=== PATIENT | female | born 1940 | race Caucasian/White ===

== ENCOUNTER 2016-12-31 15:26 | Emergency (ER) | payer MEDICARE, OTHER ==
[~2016-12-31] VITALS: Ht 165.1 cm; Wt 74.8 kg
[~2016-12-31 15:26] MED LIST: ASPI81TA2 PO; BIMA2.5D5 OP; DYMISTA; IBUP-1481 PO; KETO10TA2 PO; LEVO50TA40 PO; RANI15SY PO; SIMV20TA6 PO; ZOLP12.542 PO
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
[2016-12-31] MEDS ORDERED: MORPHINE SULFATE INJ 4 MG/ML DISP.SYRIN ONE (15:42)
[2016-12-31] MEDS ORDERED: ONDANSETRON 4 MG TAB.RAPDIS ONE (15:42)
--- NOTE | 2016-12-31 15:50 | NUR ---
java technical manager at bs
--- NOTE | 2016-12-31 15:56 | NUR ---
Medicated patient for pain. will cont to monitor
[2016-12-31] MEDS ORDERED: ONDANSETRON 4 MG TAB.RAPDIS PO ONE (16:00)
[2016-12-31] MEDS ORDERED: MORPHINE SULFATE INJ 2 MG/ML DISP.SYRIN IM ONE (16:00)
[2016-12-31] MEDS ORDERED: IV SET PRIMARY 1 EA INFUS.SET MC ONE (16:20)
[2016-12-31] MEDS ORDERED: ETOMIDATE 2 MG/ML VIAL ONE (16:20)
[2016-12-31] MEDS ORDERED: IV NS 0.9% 250 ML IV ONE (16:20)
[2016-12-31] MEDS ORDERED: ETOMIDATE 2 MG/ML VIAL IV ONE (16:30)
--- NOTE | 2016-12-31 16:55 | NUR ---
elbow close reduction done at bedside by md Vo. Pt tolerated procedure well. Sling provided
--- NOTE | 2016-12-31 16:55 | NUR ---
Miguel A guevara in EDM - 12/31/16 at 1736 by RBATACLAN Close elbow reduction done at bedside by md Vo. Pt tolerated procedure well. Sling provided
[2016-12-31 19:31] VITALS: BP 125/65
--- NOTE | 2016-12-31 19:32 | NUR ---
Patient discharged to home in stable condition. Written and verbal after care instructions given. Patient verbalizes understanding of instruction.
== END 2016-12-31 19:32 | disposition home or self-care (01) ==
LOC: ER 15:29
DX: S53.105A Unspecified dislocation of left ulnohumeral joint, initial encounter (principal); K21.9 Gastro-esophageal reflux disease without esophagitis; E07.9 Disorder of thyroid, unspecified; Z79.82 Long term (current) use of aspirin; Z86.73 Personal history of transient ischemic attack (TIA), and cerebral infarction without residual deficits; Z88.0 Allergy status to penicillin; W19.XXXA Unspecified fall, initial encounter; Y92.89 Other specified places as the place of occurrence of the external cause; Y93.89 Activity, other specified; Y99.8 Other external cause status
CPT/HCPCS: 73060-TC; 73070-TC; 73090-TC; A4606; J2270; J3490; J7050; Q0162; Z7610

== ENCOUNTER 2020-05-12 18:22 | Inpatient (IN) | payer MEDICARE, OTHER ==
[~2020-05-12] VITALS: Ht 162.6 cm; Wt 67.6 kg
[~2020-05-12 18:22] MED LIST changes: +ASPI-1169 PO; -ASPI81TA2 PO; -IBUP-1481 PO; +IBUP-1953 PO; -LEVO50TA40 PO; +LEVO50TA66 PO; +SIMV-46 PO; -SIMV20TA6 PO
[2020-05-12 19:22] LABS: BASOPHILS # (AUTO) 0.1 /CMM (0.0-0.2); BASOPHILS % (AUTO) 0.5 % (0.0-2.0); HEMATOCRIT 37 % (33-45); HEMOGLOBIN 11.9 g/dL (11.5-14.8); LYMPHOCYTES # (AUTO) 0.6 /CMM (0.8-4.8); LYMPHOCYTES % (AUTO) 3.6 % (20.0-44.0); MEAN CORPUSCULAR HGB CONC 32 g/dl (31.0-36.0); MEAN CORPUSCULAR VOLUME 91 fL (82-100); MONOCYTES # (AUTO) 1.4 /CMM (0.1-1.30); MONOCYTES % (AUTO) 9.1 % (2.0-12.0); NEUTROPHILS # (AUTO) 13.6 /CMM (1.8-8.9); NEUTROPHILS % (AUTO) 86.8 % (43.0-81.0); PLATELET COUNT (AUTO) 199 /CMM (150-450); RED BLOOD CELL COUNT(AUTO) 4.06 MIL/uL (4.0-5.2); WHITE BLOOD COUNT (AUTO) 15.6 K/uL (4.3-11.0)
[2020-05-12 19:32] LABS: CALCIUM, SERUM 9.4 mg/dL (8.5-10.1); CARBON DIOXIDE 23 mmol/L (21-32); CHLORIDE 104 mmol/L (98-107); CREATININE 1.2 mg/dL (0.6-1.3); GLUCOSE 129 mg/dL (74-106); POTASSIUM 3.6 mmol/L (3.5-5.1); SODIUM SERUM 137 mmol/L (136-145); UREA NITROGEN, BLOOD 25 mg/dL (7-18)
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
[2020-05-12] MEDS ORDERED: FENTANYL PF 100MCG/2ML AMPUL IV ONE (20:00)
[2020-05-12] MEDS ORDERED: IV NS 0.9% 1,000 ML IV ONE ×2 (20:00→22:00)
[2020-05-12] MEDS ORDERED: FENTANYL PF 100MCG/2ML AMPUL ONE (20:14)
--- NOTE | 2020-05-12 21:35 | NUR ---
[facility], PAGED DEVANTE LAWRENCE DNP
[2020-05-12 21:45] LABS: APPEARANCE,URINE Clear (CLEAR); BILIRUBIN,URINE SMALL (NEGATIVE); BLOOD, URINE Large Ery/uL (NEGATIVE); COLOR,URINE Orange (YELLOW); KETONES,URINE 15 (NEGATIVE); LEUKOCYTE ESTERASE ,URINE Small (NEGATIVE); NITRITE, URINE Negative (NEGATIVE); PH,URINE 5.5 (5.0-8.0); PROTEIN,URINE 100 mg/dl (NEGATIVE); UGLUCOSE Negative (NEGATIVE); UROBILINOGEN,URINE 0.2 EU/dL (0.2)
--- NOTE | 2020-05-12 21:49 | NUR ---
REPORT GIVEN TO MARCELLE CHAND FOR DEBBIE
[2020-05-12 21:56] LABS: BACTERIA,URINE Many /HPF (None Seen); RBC,URINE 21-50 /HPF (0-2)
[2020-05-12 21:57] LABS: SQUAMOUS EPITHELIAL CELL,UR Few /HPF (None Seen)
[2020-05-12 22:00] VITALS: BP 112/63
[2020-05-12] MEDS ORDERED: ONDANSETRON HCL/PF 4 MG/2 ML VIAL IVP PRN (22:00)
[2020-05-12] MEDS ORDERED: HYDROCODONE/APAP 5/325MG 1 EACH TABLET PO PRN (22:00)
[2020-05-12] MEDS ORDERED: ACETAMINOPHEN 325 MG TABLET PO PRN (22:00)
[2020-05-12] MEDS ORDERED: Z GUARD REMEDY 2 OZ OINT TP PRN (22:00)
[2020-05-12] MEDS ORDERED: MAGNESIUM HYDROXIDE 30 ML UDC PO PRN (22:00)
--- NOTE | 2020-05-12 22:08 | NUR ---
PT TRANPORTED TO UNIT ON [facility] WITH EMT AND RN AT BEDSIDE W/ ACLS PROTOCOL.
--- NOTE | 2020-05-12 22:15 | NUR ---
MS RN NOTES PATIENT ARRIVED ON FLOOR AT 2215. PT IS ALERT AND ORIENTED X 2-3. HAS TO BE REMINDED OFTEN ON PREVIOUSLY DISCUSSED TOPICS. BREATHING EVEN AND UNLABORED ON ROOM AIR. SHOWS NO SIGNS OF ACUTE RESPIRATORY DISTRESS, NO ACUTE PAIN. IV ON R HAND 18G ITS CLEAN DRY AND INTACT, RUNNING NS AT 75ML/HR. SHOWS NO SIGNS OF INFILTRATION, NO REDNESS. SAFETY PRECAUTIONS IN PLACE. BED IN LOWEST POSITION, LOCKED, AND CALL LIGHT KEPT WITHIN REACH. WILL CONTINUE TO MONITOR.
--- NOTE | 2020-05-12 22:16 | NUR ---
MS RN NOTES BELONGINGS CHECKLIST COMPLETED, ORIENTED TO ROOM AND STAFF. SKIN ASSESSMENT & PICTURES COMPLETED. PT REFUSED DVT PUMPS ON LEGS B/C OF PAIN, EDUCATED RISK AND BENEFITS. HAS LOVENOX ON EMAR. WILL CONTINUE TO MONITOR.
[2020-05-12] MEDS: ENOXAPARIN SODIUM 40 MG/0.4 ML DISP.SYRIN SQ SCH (23:09)
[2020-05-13] MEDS ORDERED: ZOLPIDEM TARTRATE 5 MG TABLET PO PRN (00:30)
--- NOTE | 2020-05-13 00:35 | NUR ---
MS RN NOTES PATIENT REQUEST SLEEPING MEDICATIONS, SHE NORMALLY TAKES AMBIEN AT HOME. GIVEN AT 0035. WILL CONTINUE TO MONITOR.
[2020-05-13] MEDS: MORPHINE SULFATE INJ 2 MG/ML DISP.SYRIN IV PRN ×2 (01:11→07:15)
--- NOTE | 2020-05-13 01:15 | NUR ---
MS RN NOTES PATIENT COMPLAINING ABOUT PAIN AND CONTINUED TO YELL. GIVEN PRN MORPHINE AT 0111. VITAL SIGNS WNL. WILL CONTINUE TO MONITOR.
[2020-05-13] MEDS: LEVOTHYROXINE SODIUM 50 MCG TABLET PO SCH (06:14)
--- NOTE | 2020-05-13 06:37 | NUR ---
MS RN NOTES PT IS ALERT AND ORIENTED X 2-3. FORGETFUL. BREATHING EVEN AND UNLABORED ON ROOM AIR. SHOWS NO SIGNS OF ACUTE RESPIRATORY DISTRESS, NO ACUTE PAIN. IV ON L HAND 20G ITS CLEAN DRY AND INTACT, RUNNING NS AT 75ML/HR. SHOWS NO SIGNS OF INFILTRATION, NO REDNESS. ALL DUE MEDICATIONS GIVEN. SAFETY PRECAUTIONS IN PLACE. BED IN LOWEST POSITION, LOCKED, AND CALL LIGHT KEPT WITHIN REACH. WILL ENDORSE TO ONCOMING NURSE.
--- NOTE | 2020-05-13 07:15 | NUR ---
MS RN NOTES PATIENT COMPLAINING OF PAIN 06/01. GIVEN PRN MORPHINE AT 0715. WILL CONTINUE TO MONITOR.
--- NOTE | 2020-05-13 07:35 | NUR ---
MS RN NOTES PATIENT RECEIVED IN BED AWAKE, ALERT AND ORIENTED X 2-3. PATIENT ON ROOM AIR WITH NO SIGNS OF RESPIRATORY DISTRESS AT THIS TIME, WITH EVEN NON-LABORED BREATHING, AND NO SIGNS OF SOB. PATIENT SKIN WARM AND DRY TO TOUCH. LAMBERT CATHETER IN PLACE WITH URINE OUTPUT FLOWING BY GRAVITY. PATIENT GIVEN MORPHINE PRN FOR PAIN AT 0715, PATIENT DENIES PAIN AND DISCOMFORT AT THIS TIME, AND PROVIDED COMFORT MEASURES. SAFETY PRECAUTIONS IN PLACE WITH BED IN THE LOWEST POSITION, BED ALARM ON, BED LOCKED, BILATERAL SIDE RAILS UP, AND CALL LIGHT WITHIN EASY REACH OF THE PATIENT. WILL CONTINUE TO MONITOR PATIENT.
[2020-05-13 08:00] VITALS: BP 109/46
[2020-05-13 08:01] LABS: BASOPHILS % (AUTO) 0.2 % (0.0-2.0); HEMATOCRIT 35 % (33-45); HEMOGLOBIN 11.5 g/dL (11.5-14.8); LYMPHOCYTES # (AUTO) 0.5 /CMM (0.8-4.8); LYMPHOCYTES % (AUTO) 4.4 % (20.0-44.0); MEAN CORPUSCULAR HGB CONC 33 g/dl (31.0-36.0); MEAN CORPUSCULAR VOLUME 91 fL (82-100); MONOCYTES # (AUTO) 1.1 /CMM (0.1-1.30); MONOCYTES % (AUTO) 9.6 % (2.0-12.0); NEUTROPHILS # (AUTO) 9.4 /CMM (1.8-8.9); NEUTROPHILS % (AUTO) 85.8 % (43.0-81.0); PLATELET COUNT (AUTO) 178 /CMM (150-450); RED BLOOD CELL COUNT(AUTO) 3.81 MIL/uL (4.0-5.2); WHITE BLOOD COUNT (AUTO) 10.9 K/uL (4.3-11.0)
[2020-05-13 08:10] LABS: CALCIUM, SERUM 9.2 mg/dL (8.5-10.1); CREATININE 0.9 mg/dL (0.6-1.3); MAGNESIUM 2.3 mg/dL (1.8-2.4); PHOSPHORUS 1.8 mg/dL (2.5-4.9); POTASSIUM 3.5 mmol/L (3.5-5.1)
[2020-05-13 08:11] LABS: THYROID STIMULATING HORMONE 2.578 uIU/mL (0.358-3.74)
--- NOTE | 2020-05-13 08:35 | NUR ---
WOUND CARE CONSULT: PT REFUSED TO TURN FOR FULL SKIN ASSESSMENT. LEFT ELBOW BLANCHABLE REDNESS NOTED. PER NURSING DOCUMENTATION, THERE IS GROIN RASH. RECOMMENDATIONS MADE FOR SKIN PROTECTION. DISCUSSED WITH NURSING STAFF. WILL SEE PRN. PATRICIO IN AGREEMENT WITH PLAN OF CARE.
--- NOTE | 2020-05-13 08:35 | NUR ---
MS RN NOTES PATIENT SEEN BY WOUND CARE NURSEJEREMÍAS. RECOMMENDED SKIN IMPLEMENTATION PRECAUTIONS. WILL FOLLOW PLAN OF CARE AND CONTINUE TO MONITOR PATIENT.
[2020-05-13] MEDS ORDERED: SULFAMETH/TRIMETH 800/160 MG 1 UDTAB TABLET PO SCH (09:00)
[2020-05-13] MEDS ORDERED: BIMATOPROST 2.5 ML DROPS OP SCH (09:00)
[2020-05-13] MEDS: SULFAMETH/TRIMETH 800/160 MG 1 UDTAB TABLET PO SCH ×2 (09:11→20:54)
[2020-05-13] MEDS: SIMVASTATIN 20 MG TABLET PO SCH (09:11)
[2020-05-13] MEDS: DOCUSATE SODIUM 100 MG CAPSULE PO SCH ×2 (09:11→17:27)
[2020-05-13] MEDS: IBUPROFEN 600 MG TABLET PO SCH (09:11)
[2020-05-13] MEDS: FAMOTIDINE (20 MG) 20 MG TABLET PO SCH (09:11)
[2020-05-13] MEDS: ASPIRIN 81 MG TAB.CHEW PO SCH (09:14)
[2020-05-13] MEDS ORDERED: NEUTRA PHOS 1 POWD.PACKET PO ONE (10:30)
[2020-05-13] MEDS: CLOTRIMAZOLE 1% 15 GM TUBE TP SCH ×2 (10:49→17:28)
[2020-05-13] MEDS: IV NS 0.9% 1,000 ML IV PRN (13:49)
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
--- NOTE | 2020-05-13 15:30 | NUR ---
MS RN NOTES Received Patient awake and resting in bed. A/O x 2-3, with episodes of forgetfulness. VS stable with no acute distress. Breathing even and unlabored on room air with no respiratory distress. Denies pain. No signs and symptoms of pain. Eng Cath in place and patent. 20g PIV on left hand clean, intact, patent and flushing well with NS infusing at 75ml/hr. Safety precautions in place. Bed locked and set to lowest position with side rails x 2 up. All needs rendered at this time. Call light within reach. Will continue to monitor.
[2020-05-13 16:00] VITALS: BP 106/58
--- NOTE | 2020-05-13 16:00 | NUR ---
MS RN NOTES GAVE REPORT TO RNDESMOND. PATIENT CURRENTLY RESTING COMFORTABLY IN BED. NO SIGNS RESPIRATORY DISTRESS AT THIS TIME, WITH EVEN NON-LABORED BREATHING AND NO SOB NOTED. SAFETY PRECAUTIONS IMPLEMENTED WITH BED LOCKED, BED ALARM ON, BILATERAL SIDE RAILS UP AND CALL LIGHT WITHIN EASY REACH OF PATIENT. WILL ENDORSE PLAN OF CARE TO NURSE.
--- NOTE | 2020-05-13 16:28 | NUR ---
MS RN NOTES Notified Emma TIJERINA for Ortho consult. Per LILLIANA, he will not see the Patient today. Patient in stable condition. Will continue to monitor.
--- NOTE | 2020-05-13 19:17 | NUR ---
MS RN NOTES PATIENT IN BED, AWAKE, ALERT AND ORIENTED X 2-3. VERY FORGETFUL. BREATHING EVEN AND UNLABORED ON ROOM AIR. SHOWS NO SIGNS OF ACUTE RESPIRATORY DISTRESS, NO ACUTE PAIN. PT HAS FC ITS RUNNING YELLOW CLEAR URINE, ITS CLEAN DRY AND INTACT. IV ON L HAND 20G RUNNING NS AT 75ML/HR. SHOWS NO SIGNS INFILTRATION, NO REDNESS. SAFETY PRECAUTIONS IN PLACE. BED IN LOWEST POSITION, LOCKED, AND CALL LIGHT KEPT WITHIN REACH. WILL CONTINUE TO MONITOR.
--- NOTE | 2020-05-13 19:18 | NUR ---
MS RN CLOSING NOTES Patient awake and resting in bed. A/O x 2-3, with episodes of forgetfulness. VS stable with no acute distress. Breathing even and unlabored on room air with no respiratory distress. Denies pain. No signs and symptoms of pain. Eng Cath in place and patent. 20g PIV on left hand clean, intact, patent and flushing well with NS infusing at 75ml/hr. Safety precautions in place. Bed locked and set to lowest position with side rails x 2 up. All needs rendered at this time. Call light within reach. Will endorse plan of care to oncoming shift.
[2020-05-13 20:00] VITALS: BP 131/60
[2020-05-13] MEDS: ENOXAPARIN SODIUM 40 MG/0.4 ML DISP.SYRIN SQ SCH (20:56)
[2020-05-13] MEDS: LATANOPROST EYE DROP 0.005% 2.5 ML BOTTLE OP SCH (21:54)
[2020-05-14] MEDS: LEVOTHYROXINE SODIUM 50 MCG TABLET PO SCH (06:05)
--- NOTE | 2020-05-14 06:45 | NUR ---
MS RN NOTES PATIENT IN BED, ASLEEP, ALERT AND ORIENTED X 2-3. VERY FORGETFUL. BREATHING EVEN AND UNLABORED ON ROOM AIR. SHOWS NO SIGNS OF ACUTE RESPIRATORY DISTRESS, NO ACUTE PAIN. PT HAS FC ITS RUNNING YELLOW CLEAR URINE, ITS CLEAN DRY AND INTACT. IV ON L HAND 20G RUNNING NS AT 75ML/HR. SHOWS NO SIGNS INFILTRATION, NO REDNESS. ALL DUE MEDICATIONS GIVEN. SAFETY PRECAUTIONS IN PLACE. BED IN LOWEST POSITION, LOCKED, AND CALL LIGHT KEPT WITHIN REACH. WILL ENDORSE TO ONCOMING NURSE.
[2020-05-14 07:07] LABS: CALCIUM, SERUM 8.9 mg/dL (8.5-10.1); CREATININE 0.9 mg/dL (0.6-1.3); PHOSPHORUS 1.6 mg/dL (2.5-4.9); POTASSIUM 3.3 mmol/L (3.5-5.1)
[2020-05-14 07:12] LABS: BASOPHILS % (AUTO) 0.4 % (0.0-2.0); EOSINOPHILS % (AUTO) 0.1 % (0.0-6.0); HEMATOCRIT 32 % (33-45); HEMOGLOBIN 10.5 g/dL (11.5-14.8); LYMPHOCYTES # (AUTO) 0.4 /CMM (0.8-4.8); LYMPHOCYTES % (AUTO) 6.5 % (20.0-44.0); MEAN CORPUSCULAR HGB CONC 33 g/dl (31.0-36.0); MEAN CORPUSCULAR VOLUME 90 fL (82-100); MONOCYTES # (AUTO) 0.7 /CMM (0.1-1.30); MONOCYTES % (AUTO) 10.8 % (2.0-12.0); NEUTROPHILS # (AUTO) 5.3 /CMM (1.8-8.9); NEUTROPHILS % (AUTO) 82.2 % (43.0-81.0); PLATELET COUNT (AUTO) 153 /CMM (150-450); RED BLOOD CELL COUNT(AUTO) 3.54 MIL/uL (4.0-5.2); WHITE BLOOD COUNT (AUTO) 6.5 K/uL (4.3-11.0)
--- NOTE | 2020-05-14 07:25 | NUR ---
MS RN NOTES RECEIVED PT IN BED, ASLEEP, EASILY AROUSED, A/OX2-3. PT TOLERATING RA WITH NO ACUTE RESPIRATORY DISTRESS NOTED. PT DENIES ANY PAIN OR DISCOMFORT AT THIS TIME. PT DENIES PAIN OR DISCOMFORT AT THIS TIME. PT DENIES CONCERNS OR QUESTIONS AT THIS MOMENT WELL. IVF NS @75ML/HR TO L HAND G20, FLUID INFUSING WELL. PT KEPT COMFORTABLE IN BED. CALL LIGHT KEPT WITHIN REACH. PT'S BED IN LOWEST, LOCKED POSITION WITH SRX3. WILL CONTINUE PLAN OF CARE.
[2020-05-14 08:10] VITALS: BP 128/70
[2020-05-14] MEDS: IBUPROFEN 600 MG TABLET PO SCH (08:54)
[2020-05-14] MEDS: ASPIRIN 81 MG TAB.CHEW PO SCH (08:54)
[2020-05-14] MEDS: DOCUSATE SODIUM 100 MG CAPSULE PO SCH ×2 (08:54→16:45)
[2020-05-14] MEDS: SIMVASTATIN 20 MG TABLET PO SCH (08:54)
[2020-05-14] MEDS: FAMOTIDINE (20 MG) 20 MG TABLET PO SCH (08:54)
[2020-05-14] MEDS: SULFAMETH/TRIMETH 800/160 MG 1 UDTAB TABLET PO SCH ×2 (08:54→21:06)
[2020-05-14] MEDS: CLOTRIMAZOLE 1% 15 GM TUBE TP SCH ×2 (09:12→16:45)
[2020-05-14] MEDS ORDERED: POTASSIUM PHOSPHATE MM 15 MMOL in IV NS 0.9% 250 ML IV SCH (10:00)
[2020-05-14] MEDS: SOD FERRIC GLUC 125 MG in IV NS 0.9% 100 ML IV SCH (15:26)
[2020-05-14 16:00] VITALS: BP 112/69
[2020-05-14] MEDS: IV NS 0.9% 1,000 ML IV PRN (16:54)
--- NOTE | 2020-05-14 19:18 | NUR ---
MS RN NOTES PT IN BED,AWAKE, CONFUSED, A/OX2-. PT TOLERATING RA WITH NO ACUTE RESPIRATORY DISTRESS NOTED. PT DENIES ANY PAIN OR DISCOMFORT AT THIS TIME. PT DENIES PAIN OR DISCOMFORT AT THIS TIME. IVF NS @75ML/HR TO L HAND G20, FLUID INFUSING WELL. PT KEPT COMFORTABLE IN BED. ALL NEEDS AND ATTENDED. CALL LIGHT KEPT WITHIN REACH. PT'S BED IN LOWEST, LOCKED POSITION WITH SRX3. WILL ENDORSE TO INCOMING NIGHT NURSE.
--- NOTE | 2020-05-14 19:25 | NUR ---
GLASS WASHER: RECEIVED REPORT FROM CARLOS A IBANEZ. PT IN BED, YELLING SCREAMING WANTING TO GET OUT OF BED, PT APPEARS TO BE SUNDOWNING, VERY CONFUSED, REORIENTATION PROVIDED . PT A/O X2. RESPIRATIONS EVEN AND UNLABORED. IV ACCESS PATENT AND FLUSHING WELL, INFUSING WITH NS AT 75ML/HR. PT HAS LAMBERT CATHETER IN PLACED, BAG DRAINING VIA GRAVITY. PT SEEN BY PT TODAY, BUT PT REFUSED TO PARTICIPATE, WILL COME BACK IN AM. SPEAK WITH ARUNA MARQUEZ, COORDINATE TO PLEASE SIT WITH THE PT ONE'S SHE'S DONE DOING HER VITAL SIGNS AND MAKING HER ROUNDS. PT HIGH FALL RISK. SAFETY PRECAUTIONS FOR FALL INITIATED, BED BRAKES SECURED, BED IN LOWEST POSITION, CALL LIGHT IN REACH, WILL CONTINUE MONITORING PT.
[2020-05-14 19:54] LABS: OCCULT BLOOD STOOL NEGATIVE (NEGATIVE)
[2020-05-14 20:00] VITALS: BP 120/71
--- NOTE | 2020-05-14 20:00 | NUR ---
RN NOTES: PT REFUSED WEARING SCD DESPITE PROVIDING EDUCATION. FREQUENT REORIENTATION PROVIDED.
--- NOTE | 2020-05-14 21:00 | NUR ---
RN NOTES: ARUNA MARQUEZ STAYING IN THE ROOM WITH THE PT WHILE RN PASSING MEDICATIONS. WILL ALTERNATE, PT HIGH FALL RISK, INFORMED RN SUP FOR SITTER BUT NOT ENOUGH STAFF.
[2020-05-14] MEDS: ENOXAPARIN SODIUM 40 MG/0.4 ML DISP.SYRIN SQ SCH (21:06)
[2020-05-14] MEDS: LATANOPROST EYE DROP 0.005% 2.5 ML BOTTLE OP SCH (21:06)
[2020-05-14 21:10] VITALS: BP 124/80
--- NOTE | 2020-05-14 21:23 | NUR ---
RN NOTES/BACK FROM COLONOSCOPY: PT S/P COLONOSCOPY, BROUGHT BACK TO THE UNIT ACCOMPANIED BY OR STAFF. PT A/O X4, ON RA, RESPIRATIONS EVEN AND UNLABORED, AWAKE, IV ACCESS PATENT AND FLUSHING WELL, WITH ONGOING NS BOLUS. PER OR STAFF, RESULT IS HEMORRHOIDS. VS TAKEN AND RECORDED. PLACED PT ON BED SAUNDERS. INSTRUCTION TO PT TO STAY FLAT ON BED X 4HRS POST PROCEDURE, AND WILL BE STARTED ON CLEAR LIQUID DIET, WILL MONITOR IF PT WILL TOLERATE. ALL COMMUNICATION TRANSLATED TO PT IN [place] USING [place] SPEAKING STEM SIZER. Addendum: 05/14/20 at 6004 by CATALINA WONG RN disregard above documentation: wrong entry
--- NOTE | 2020-05-14 22:00 | NUR ---
RN NOTES: REPOSITION PT WITH HELP OF ARUNA MARQUEZ, PT STATED SHE WOULD LIKE TO SLEEP NOW, TO TURN TV OFF AND LEAVE HER ALONE. BED ALARM SECURED, SAFETY PRECAUTIONS FOR FALL REMAINS ENGAGED, CALL LIGHT IN REACH, WILL CONTINUE MONITORING PT. JIMMY VALDOVINOS AT BEDSIDE.
--- NOTE | 2020-05-15 00:19 | NUR ---
RN NOTES: SEEN PT SLEEPING AT THIS TIME, APPEARS CLAM AND COMFORTABLE, NO FACIAL GRIMACE NOTED, RESPIRATIONS EVEN AND UNLABORED.
[2020-05-15] MEDS: IV NS 0.9% 1,000 ML IV PRN (02:12)
--- NOTE | 2020-05-15 04:15 | NUR ---
rn notes/iv reinsertion: pt accidentally pulled out her iv access. reinserted new iv on right wrist using g 22, good blood return noted, tegaderm dressing applied, appropriate label attached, connected pt back to ivf as ordered.
--- NOTE | 2020-05-15 06:46 | NUR ---
end of shift report: pt remains a/o x, frequent reorientation provided, as pt noted with episode of confusion/forgetfulness at times. iv access remains patent and flushing well, infusing with ns at 75ml/hr, no s/s of iv infiltration noted. pt will have 1:1 sitter in am. cedeno catheter remains in placed. all due meds administered. vs remains stable, needs attended. PLAN OF CARE: DC PLANNING, PHYSICAL THERAPY RECOMMENDATION ARGlenn, LALA ON CASE TO COORDINATE WITH PATIENT BEEN REFUSING AND REQUESTING TO GO BACK HOME. Safety precautions for fall remains engaged, call light in reach, will endorse to day luis ruiz for continuity of care.
--- NOTE | 2020-05-15 07:00 | NUR ---
rn notes: pt doesnt want to take her synthroid at this time, stated to let her sleep. will endorse to day luis ruiz. education provided to pt.
[2020-05-15 07:15] LABS: BASOPHILS % (AUTO) 0.4 % (0.0-2.0); EOSINOPHILS % (AUTO) 1.7 % (0.0-6.0); HEMATOCRIT 31 % (33-45); HEMOGLOBIN 10.1 g/dL (11.5-14.8); LYMPHOCYTES # (AUTO) 0.7 /CMM (0.8-4.8); MEAN CORPUSCULAR HGB CONC 33 g/dl (31.0-36.0); MEAN CORPUSCULAR VOLUME 90 fL (82-100); MONOCYTES # (AUTO) 0.7 /CMM (0.1-1.30); MONOCYTES % (AUTO) 12.1 % (2.0-12.0); NEUTROPHILS % (AUTO) 72.8 % (43.0-81.0); PLATELET COUNT (AUTO) 132 /CMM (150-450); RED BLOOD CELL COUNT(AUTO) 3.43 MIL/uL (4.0-5.2); WHITE BLOOD COUNT (AUTO) 5.5 K/uL (4.3-11.0)
--- NOTE | 2020-05-15 07:30 | NUR ---
MS RN NOTES RECEIVED PT IN BED, ASLEEP, EASILY AROUSED, A/OX2-3. SITTER AT BEDSIDE 1:1. PT TOLERATING RA WITH NO ACUTE RESPIRATORY DISTRESS NOTED. PT DENIES ANY PAIN OR DISCOMFORT AT THIS TIME. PT DENIES PAIN OR DISCOMFORT AT THIS TIME. PT DENIES CONCERNS OR QUESTIONS AT THIS MOMENT WELL. IVF NS @75ML/HR TO R WRIST G22, FLUID INFUSING WELL. PT KEPT COMFORTABLE IN BED. CALL LIGHT KEPT WITHIN REACH. PT'S BED IN LOWEST, LOCKED POSITION WITH SRX3. WILL CONTINUE PLAN OF CARE.
[2020-05-15 07:58] LABS: CALCIUM, SERUM 8.7 mg/dL (8.5-10.1); CREATININE 0.8 mg/dL (0.6-1.3); POTASSIUM 3.5 mmol/L (3.5-5.1)
[2020-05-15 08:00] VITALS: BP 133/65
[2020-05-15] MEDS: SIMVASTATIN 20 MG TABLET PO SCH (09:06)
[2020-05-15] MEDS: FAMOTIDINE (20 MG) 20 MG TABLET PO SCH (09:06)
[2020-05-15] MEDS: ASPIRIN 81 MG TAB.CHEW PO SCH (09:06)
[2020-05-15] MEDS: IBUPROFEN 600 MG TABLET PO SCH (09:06)
[2020-05-15] MEDS: DOCUSATE SODIUM 100 MG CAPSULE PO SCH ×2 (09:07→17:00)
[2020-05-15] MEDS: SULFAMETH/TRIMETH 800/160 MG 1 UDTAB TABLET PO SCH (09:07)
[2020-05-15] MEDS: CLOTRIMAZOLE 1% 15 GM TUBE TP SCH ×2 (09:11→17:21)
[2020-05-15] MEDS: LEVOTHYROXINE SODIUM 50 MCG TABLET PO SCH (09:29)
--- NOTE | 2020-05-15 12:34 | NUR ---
WOUND CARE FOLLOW UP: PT TURNED FOR FULL SKIN ASSESSMENT AND NOTED TO HAVE BLANCHABLE REDNESS TO SACRAL/BUTTOCKS AREA. RECOMMENDATIONS MADE FOR SKIN PROTECTION. DISCUSSED WITH NURSING STAFF. WILL SEE PRN. PATRICIO IN AGREEMENT WITH PLAN OF CARE.
[2020-05-15] MEDS: SOD FERRIC GLUC 125 MG in IV NS 0.9% 100 ML IV SCH (14:00)
[2020-05-15 16:00] VITALS: BP 115/58
--- NOTE | 2020-05-15 16:12 | NUR ---
MS RN NOTES CALLED LAB AND FOLLOWED UP WITH LAB REGARDING COVID RESULT FOR DISCHARGE PURPOSES. AWAITING FOR RESULT. PT AWARE.
--- NOTE | 2020-05-15 16:15 | NUR ---
MS RN NOTES RECEIVED ORDER FROM HOSPITALIST/NN, TO REMOVE LAMBERT BEFORE PT BEING DISCHARGED. EMPTIED 350ML. WILL CONTINUE TO MONITOR.
--- NOTE | 2020-05-15 16:57 | NUR ---
MS RN NOTES REPORT GIVEN TO RN/CANDIDO AT [facility] FOR DEBBIE. PT PRESSURE TESTER TIME IS 1845 TONIGHT. WILL CONTINUE PLAN OF CARE.
--- NOTE | 2020-05-15 19:14 | NUR ---
MS RN NOTES PT REMAINS IN BED, A/OX2-3. PT TOLERATING RA WITH NO ACUTE RESPIRATORY DISTRESS NOTED. PT DENIES ANY PAIN OR DISCOMFORT AT THIS TIME. PT DENIES PAIN OR DISCOMFORT AT THIS TIME. PIV TO R WRIST G22,REMOVED AND APPLIED DRY DRESSING. PT'S DISCHARGE INSTRUCTION AND INVENTORY LIST, REVIEWED AND SIGNED BY 2NURSES DUE TO PT UNABLE TO SIGN. VERBAL DISCHARGE INSTRUCTIONS GIVEN TO /JUDE. ALL NEEDS AND CARE ATTENDED. SKIN ASSESSED, PICTURES TAKEN AND FILED IN THE CHART. VS TAKEN BY RECEIVING WORKER AND STABLE. PT LEFT THE UNIT AT 1915. HOSPITALIST AWARE OF DISCHARGE.
[2020-05-15] MEDS ORDERED: NITROFURANTOIN/NITROFURAN MAC 100 MG CAPSULE PO SCH (21:00)
== END 2020-05-15 19:20 | DRG 554 ==
LOC: ER 18:28 → MED 21:28 → MEDSG2 05-13 21:31
PROVIDERS: ADMIT Nurse Practitioner Acute Care; ATTEND Nurse Practitioner Acute Care
DX: M16.0 Bilateral primary osteoarthritis of hip (principal); N39.0 Urinary tract infection, site not specified; D68.59 Other primary thrombophilia; E03.9 Hypothyroidism, unspecified; R79.89 Other specified abnormal findings of blood chemistry; Z86.73 Personal history of transient ischemic attack (TIA), and cerebral infarction without residual deficits; K21.9 Gastro-esophageal reflux disease without esophagitis; E87.6 Hypokalemia; E83.39 Other disorders of phosphorus metabolism; D64.9 Anemia, unspecified; Z88.0 Allergy status to penicillin; W18.30XA Fall on same level, unspecified, initial encounter; Y92.89 Other specified places as the place of occurrence of the external cause; R53.1 Weakness; D72.829 Elevated white blood cell count, unspecified; I10 Essential (primary) hypertension; E78.5 Hyperlipidemia, unspecified
CPT/HCPCS: 36415; 70450-TC; 71045-TC; 73502; 73552; 73590-TC; 73700-TC; 80048-TC; 80061-TC; 81000-TC; 82272-TC; 82728-TC; 83540-TC; 83735-TC; 84100-TC; 84439-TC; 84443-TC; 84484-TC; 85025-TC; 87081-TC; 87086-TC; 87186-TC; 93307-TC; 97530-TC; G0378; J1650; J2270; J2916; J3010; J3490; J7030; J7050

== ENCOUNTER 2020-07-09 10:36 | Outpatient (CLI) | payer MEDICARE, OTHER ==
[2020-07-17] MEDS ORDERED: OXYC5CAP18 PO (16:25)
[2020-07-17] MEDS ORDERED: ASPI-992 PO (16:25)
== END 2020-07-09 23:59 | disposition home or self-care (01) ==
LOC: LAB 10:36
PROVIDERS: ATTEND Specialist
DX: Z01.812 Encounter for preprocedural laboratory examination (principal); Z20.828 Contact with and (suspected) exposure to other viral communicable diseases
CPT/HCPCS: 87426; C9803

== ENCOUNTER 2020-07-15 05:25 | Inpatient (IN) | payer MEDICARE, OTHER ==
[~2020-07-15] VITALS: Ht 162.6 cm; Wt 66.7 kg
[2020-07-15] MEDS ORDERED: BACITRACIN 50000 UNITS/VIAL ONE (06:33)
[2020-07-15] MEDS ORDERED: BUPIVACAINE 0.5 % PF 150 MG/30 ML VIAL ONE (06:33)
[2020-07-15] MEDS ORDERED: ANESTHESIA TRAY IN PYXIS 1 EA TRAY MC ONE (06:33)
--- NOTE | 2020-07-15 06:35 | NUR ---
RAUL RN NOTE: RECEIVED PATIENT FROM HOME, NO ACUTE DISTRESS NOTED. BREATHING EVEN AND UNLABORED, NO SOB NOTED. IV STARTED TO LFA #22, WITH GOOD BLOOD RETURN. CONSENTS SIGNED AND CHECKLIST COMPLETED. PATIENT HAS BEEN NPO SINCE MIDNIGHT. BELONGINGS AT BEDSIDE. PATIENT OFF FLOOR WITH SURGERY TEAM IN STABLE CONDITION.
[2020-07-15 06:40] VITALS: BP 147/64
[2020-07-15] MEDS ORDERED: TRANEXAMIC ACID 3,000 MG in SODIUM CHLORIDE IRRIG SOLUTION 70 ML IR ONE (07:30)
--- NOTE | 2020-07-15 07:30 | NUR ---
RN NOTE PATIENT STILL IN OR.
[2020-07-15] MEDS ORDERED: ROCURONIUM BROMIDE 50 MG/5 ML ONE (07:46)
[2020-07-15] MEDS ORDERED: HYDROMORPHONE INJ 2 MG/ML DISP.SYRIN ONE (07:46)
[2020-07-15] MEDS ORDERED: HYDROMORPHONE 1 MG/1 ML DISP.SYRIN ONE ×2 (09:51→10:14)
[2020-07-15] MEDS ORDERED: FENTANYL PF 100MCG/2ML AMPUL ONE (10:00)
[2020-07-15] MEDS ORDERED: HYDROCODONE/APAP 5/325MG TABLET ONE (10:19)
[2020-07-15] MEDS ORDERED: COLACE 250 MG CAPSULE PO PRN (10:30)
[2020-07-15] MEDS ORDERED: HYDROCODONE/APAP 5/325MG TABLET PO PRN ×2 (10:30→11:00)
[2020-07-15] MEDS ORDERED: DULCOLAX 10 MG/SUPP.RECT RC PRN (10:30)
[2020-07-15] MEDS ORDERED: ZOFRAN 4mg/2ML IV PRN (10:30)
[2020-07-15] MEDS ORDERED: HYDROMORPHONE 1 MG/1 ML DISP.SYRIN IV PRN (10:30)
[2020-07-15] MEDS ORDERED: TYLENOL 650 MG TABLET PO PRN (10:30)
[2020-07-15 11:00] VITALS: BP 134/66
--- NOTE | 2020-07-15 11:00 | NUR ---
MS/RN RECEIVING NOTE Received patient in bed from PACU, A&O x 3, forgetful. Will constantly reorient throughout shift. VS taken, afebrile, no SOB noted. Denies any pain/discomfort at this time, patient reported to take pain meds at PACU. Breathing even and non-labored on 2L oxygen via NC. No respiratory or cardiac distress noted. IV access noted on L FA #22, patent and intact, and flushing well. No s/s of infection, infiltration, or bleeding noted on site. Left hip abdominal dressing intact. Left abduction pillow in place, sensation from left leg remain intact, patient able to move toes. Sensation from other extremities intact. Bed locked to its lowest position, 2 side rails up, bed alarm on, and call light in hand. Instructed patient to use call light when in need of help. Will continue with current medical management. Doctor's orders from chart noted and carried out.
[2020-07-15 11:10] VITALS: BP 134/66
--- NOTE | 2020-07-15 12:30 | NUR ---
MS/RN NOTE MRSA swab collected and called lab for picked edge sewing machine operator.
[2020-07-15] MEDS: IV LR 1000 ML 1,000 ML IV PRN (13:30)
[2020-07-15 16:00] VITALS: BP 109/52
[2020-07-15] MEDS ORDERED: oxyCODONE IR immediate release 5 MG PO ONE (16:00)
[2020-07-15] MEDS ORDERED: oxyCODONE IR immediate release 5 MG PO PRN (16:00)
[2020-07-15] MEDS: ANCEF 1 GM/50 ML D5W IV SCH ×4 (16:33→18:00)
[2020-07-15] MEDS: SIMVASTATIN 20 MG TABLET PO SCH (17:01)
--- NOTE | 2020-07-15 18:09 | NUR ---
MS/RN NOTE Called lab to clarify IV antibiotic order inputted in [employer]. Per Dr. Pierre, administer ancef 1 gm at 100 ml/hr q8h x 2 doses. There were two bags scheduled on the emar, one at 1700 and one at 1800. Administered one bag at 1633. Per pharmacy, disregard second bag to administer at 1800 and next administration is at 0200. Order carried out.
--- NOTE | 2020-07-15 18:35 | NUR ---
MS/RN NOTE Patient's called to clarify levothyroxine order. He states that patient takes levothyroxine 25 mcg PO once daily, not [address] Walters. Order carried out.
--- NOTE | 2020-07-15 18:48 | NUR ---
MS/RN CLOSING NOTE Patient resting in bed, A&O x 4. All needs met and attended to. VSS, afebrile, no SOB noted. No complaints of any pain and discomfort at this time. Breathing even and non-labored on RA. No respiratory or cardiac distress noted. IV access noted LFA #22 gauge, remained patent and intact, and running LR @ 100 ml/hr. No s/s of infiltration, infection, or bleeding noted on site. Sensation from all peripheral extremities intact. Instructed patient to use call light when in need of assistance. Fall precautions maintained. Will endorse to mold shifter nurse.
--- NOTE | 2020-07-15 19:25 | NUR ---
MS IBANEZ OPEN NOTES PATIENT IS LAYING IN BED WATCHING TV. A/O X3, FORGETFUL. ON RA, NO SOB/ ACUTE RESPIRATORY DISTRESS NOTED. IV IN L FOREARM #22G IS PATENT AND INTACT RUNNING LR @ 100MLS/HR. NO COMPLAINTS OF PAIN AT THE MOMENT. BED IS IN LOWEST LOCKED POSITION WITH SIDE RAILS UP X3, SEMI FOWLERS. CALL LIGHT IS WITHIN REACH. WILL CONTINUE TO MONITOR.
[2020-07-15 20:00] VITALS: BP 120/51
[2020-07-15] MEDS: HYDROMORPHONE 1 MG/1 ML DISP.SYRIN IV PRN ×2 (20:27→23:15)
[2020-07-15] MEDS: LATANOPROST EYE DROP 0.005% 2.5 ML BOTTLE EACHEYE SCH (21:26)
[2020-07-15] MEDS ORDERED: AMBIEN 5 MG TABLET PO PRN (22:00)
[2020-07-15] MEDS ORDERED: ZOLPIDEM TARTRATE 10 MG TABLET PO PRN (22:00)
[2020-07-15] MEDS ORDERED: SENOKOT 8.6 MG TABLET PO PRN (22:00)
[2020-07-15] MEDS: diphenhydrAMINE HCL 25 MG CAPSULE PO PRN (23:41)
--- NOTE | 2020-07-16 | NUR ---
MS IBANEZ NOTES RECHECK PATIENT TEMP 98.7. WILL CONTINUE TO MONITOR. Addendum: 07/17/20 at 0045 by MANNIE SPANN RN WRONG TIME
[2020-07-16] MEDS: IV LR 1000 ML 1,000 ML IV PRN ×2 (01:03→18:26)
[2020-07-16] MEDS: ANCEF 1 GM/50 ML D5W IV SCH ×4 (01:04→02:34)
--- NOTE | 2020-07-16 02:15 | NUR ---
MS RN NOTES ENDORSED REPORT TO MARCELLE CHAND FOR DEBBIE
--- NOTE | 2020-07-16 02:24 | NUR ---
MS RN NOTES RECEIVED REPORT FOR ENDY IBANEZ FOR DEBBIE. WILL CONTINUE TO MONITOR.
[2020-07-16] MEDS: HYDROMORPHONE 1 MG/1 ML DISP.SYRIN IV PRN (06:55)
--- NOTE | 2020-07-16 06:55 | NUR ---
MS RN NOTES PATIENT REQUEST PAIN MEDICATIONS, GIVEN DILAUDID AT 0655. VITAL SIGNS WNL. WILL CONTINUE TO MONITOR.
--- NOTE | 2020-07-16 07:18 | NUR ---
MS RN NOTES PATIENT IN BED, ASLEEP, ALERT AND ORIENTED X 2-3. VERY FORGETFUL. BREATHING EVEN AND UNLABORED ON ROOM AIR. SHOWS NO SIGNS OF ACUTE RESPIRATORY DISTRESS. NO ACUTE PAIN. FC INTACT AND INPLACE FLOWING YELLOW URINE. IV ON L FA 22G RUNNING LR AT 100ML/HR. SHOWS NO SIGNS OF INFILTRATION, NO REDNESS. ALL DUE MEDICATIONS GIVEN. SAFETY PRECAUTIONS IN PLACE. BED IN LOWEST POSITION, LOCKED, AND CALL LIGHT KEPT WITHIN REACH. WILL ENDORSE TO ONCOMING NURSE.
[2020-07-16] MEDS ORDERED: LEVOTHYROXINE SODIUM 50 MCG TABLET PO SCH (07:30)
[2020-07-16 07:37] LABS: HEMOGLOBIN 10.8 g/dL (11.5-14.8)
[2020-07-16 08:00] VITALS: BP 120/60
--- NOTE | 2020-07-16 08:05 | NUR ---
RN OPENING NOTE Patient is resting in bed, A/O x2-3, confused, showing no signs of acute distress or SOB, stable on RA. S/P left hip arthroplasty with Dr. Bagley 07/15. Eng catheter DC's awaiting for void trial with bedpan. Wedge placed inbetween legs. IV line in the LFA#22g is clean and intact running LR @ 100mls/hour. Bed is in lowest position, side rails x3 in upright position, call light is within reach, fall safety and aspiration precautions enforced. Will continue with plan of care.
[2020-07-16] MEDS: LEVOTHYROXINE SODIUM 50 MCG TABLET PO SCH (08:49)
[2020-07-16] MEDS: ASPIRIN 325 MG TABLET PO SCH ×2 (08:50→17:53)
[2020-07-16] MEDS ORDERED: Medication Not On Formulary EA (Zolpidem Tartrate 12.5 MG) PO SCH (09:00)
[2020-07-16] MEDS ORDERED: FAMOTIDINE (20 MG) 20 MG TABLET PO SCH (09:00)
[2020-07-16] MEDS ORDERED: MAGNESIUM HYDROXIDE 30 ML UDC PO PRN (09:30)
[2020-07-16] MEDS ORDERED: MAG HYDROX/AL HYDROX/SIMETH 30 ML UDC PO PRN (09:30)
--- NOTE | 2020-07-16 10:51 | NUR ---
RN NOTE VTE SCORE IS 3. PER DR BERMAN PLACED AN ORDER OF DVT PUMP. PRIMARY NURSE ANGIE IS MADE AWARE.
[2020-07-16] MEDS: oxyCODONE IR immediate release 5 MG PO PRN ×3 (11:08→22:01)
[2020-07-16 16:00] VITALS: BP 111/49
[2020-07-16] MEDS: DOCUSATE SODIUM 100 MG CAPSULE PO SCH (17:00)
[2020-07-16] MEDS: SIMVASTATIN 20 MG TABLET PO SCH (17:52)
--- NOTE | 2020-07-16 19:01 | NUR ---
RN CLOSING NOTE Patient is resting in bed, A/O x2-3, confused, showing no signs of acute distress or SOB, stable on RA. S/P left hip arthroplasty with Dr. Bagley 07/15. KEON LAMBERT, patient able to urinate by herself in diaper. Patient refuses bedpan. Wedge placed inbetween legs. Wound care completed per podiatry recommendation. IV line in the LFA#22g is clean and intact running LR @ 100mls/hour. Patient refused PT today. Updated family on patient status today. All patient needs met, all due medications given, patient kept clean and dry throughout shift. Bed is in lowest position, side rails x3 in upright position, call light is within reach, fall safety and aspiration precautions enforced. Will endorse to night custodian.
--- NOTE | 2020-07-16 19:55 | NUR ---
MS RN NOTES PATIENT IN BED, AWAKE, ALERT AND ORIENTED X 2-3. VERY FORGETFUL. BREATHING EVEN AND UNLABORED ON ROOM AIR. SHOWS NO SIGNS OF ACUTE RESPIRATORY DISTRESS. NO ACUTE PAIN. L WOUND DRESSING CHANGED. IV ON L FA 22G RUNNING LR AT 100ML/HR. SHOWS NO SIGNS OF INFILTRATION, NO REDNESS. . SAFETY PRECAUTIONS IN PLACE. BED IN LOWEST POSITION, LOCKED, AND CALL LIGHT KEPT WITHIN REACH. WILL CONTINUE TO MONITOR
[2020-07-16 20:00] VITALS: BP 112/54
[2020-07-16] MEDS: diphenhydrAMINE HCL 25 MG CAPSULE PO PRN (20:12)
--- NOTE | 2020-07-16 20:30 | NUR ---
MS RN NOTES RECHECKED PT TEMP, 98.7. WILL CONTINUE TO MONITOR.
[2020-07-16] MEDS: FAMOTIDINE (20 MG) 20 MG TABLET PO SCH (21:28)
[2020-07-16] MEDS: LATANOPROST EYE DROP 0.005% 2.5 ML BOTTLE EACHEYE SCH (21:29)
[2020-07-16 22:00] VITALS: BP 112/54
--- NOTE | 2020-07-16 22:01 | NUR ---
MS RN NOTES PATIENT REQUEST PAIN MEDICATION PAIN 05/01. GIVEN PRN OXY IR 10MG AT 2201. VITAL SIGNS WNL. WILL CONTINUE TO MONITOR.
[2020-07-17] MEDS: diphenhydrAMINE HCL 25 MG CAPSULE PO PRN ×2 (04:27→20:04)
[2020-07-17] MEDS: IV LR 1000 ML 1,000 ML IV PRN (05:45)
--- NOTE | 2020-07-17 07:05 | NUR ---
MS RN NOTES PATIENT IN BED, AWAKE, ALERT AND ORIENTED X 1-2. CONFUSED. BREATHING EVEN AND UNLABORED ON ROOM AIR. SHOWS NO SIGNS OF ACUTE RESPIRATORY DISTRESS, NO ACUTE PAIN. IV INFILTRATION, ATTEMPTED 3X TIMES. RUNNINGS LR 100ML/HR. INCISION ON L HIP CLEAN DRY AND INTACT. ALL DUE MEDICATIONS GIVEN. SAFETY PRECAUTION IN PLACE. BED IN LOWEST POSITION, LOCKED, AND CALL LIGHT KEPT WITHIN REACH. WILL CONTINUE TO MONITOR.
--- NOTE | 2020-07-17 07:30 | NUR ---
CLINICAL OB OPENING NOTES PT ALERT AND ORIENTED X 2-3. WITH EPISODES OF DISORIENTATION. BREATHING EVEN AND UNLABORED ON ROOM AIR. SHOWS NO SIGNS OF ACUTE RESPIRATORY DISTRESS. NO ACUTE PAIN. IV ON L FA 22G RUNNING LR AT 100ML/HR. SHOWS NO SIGNS OF INFILTRATION, NO REDNESS. . SAFETY PRECAUTIONS IN PLACE. BED IN LOWEST POSITION, LOCKED, AND CALL LIGHT KEPT WITHIN REACH. WILL CONTINUE TO MONITOR Addendum: 07/17/20 at 1154 by CHASITY CANADA RN CLARIFICATION OF DOCUMENTATION PT RECEIVED WITH NO IV ACCESS. WILL ATTEMPT TO PLACE IV AGAIN.
[2020-07-17 08:00] VITALS: BP 109/55
[2020-07-17] MEDS: ASPIRIN 325 MG TABLET PO SCH ×2 (08:13→16:34)
[2020-07-17] MEDS: DOCUSATE SODIUM 100 MG CAPSULE PO SCH ×2 (08:13→16:34)
[2020-07-17] MEDS: FAMOTIDINE (20 MG) 20 MG TABLET PO SCH (08:14)
[2020-07-17] MEDS: LEVOTHYROXINE SODIUM 50 MCG TABLET PO SCH (08:14)
[2020-07-17] MEDS ORDERED: HYDROMORPHONE 1 MG/1 ML DISP.SYRIN IM/IV/SC PRN ×2 (09:30→10:00)
--- NOTE | 2020-07-17 14:13 | NUR ---
BRIM AND CROWN PRESSER NOTES MD MADE AWARE OF PT IV BEING INFILTRATED IN PREVIOUS SHIFT. OK TO STOP IV MEDS AT THIS TIME. PT ON PO MEDS.
[2020-07-17 16:00] VITALS: BP 115/57
[2020-07-17] MEDS ORDERED: ASPI-992 PO (16:25)
[2020-07-17] MEDS ORDERED: OXYC5CAP18 PO (16:25)
[2020-07-17] MEDS: oxyCODONE IR immediate release 5 MG PO PRN (16:34)
--- NOTE | 2020-07-17 18:30 | NUR ---
NUCLEAR OPERATOR NOTES Patient resting in bed, A&O x 4. No acute distress noted at this time. On RA with O2 sat at 97%. No respiratory or cardiac distress noted. MD aware of IV site being infiltrated prevous shift, with instructions to stop IV medications at this time. Sensation from all peripheral extremities intact. Instructed patient to use call light when in need of assistance. Fall precautions maintained. Safety precautions observed at all times. Will endorse to water meter installer nurse.
[2020-07-17] MEDS: SIMVASTATIN 20 MG TABLET PO SCH (18:44)
--- NOTE | 2020-07-17 18:53 | NUR ---
FOOD SAFETY TECHNICIAN NOTES PT FOR DISCHARGE, AWAITING FOR SQL PROGRAMMER. REPORT GIVEN TO DM (RN) IN [facility].
--- NOTE | 2020-07-17 20:30 | NUR ---
MSRN PATIENT LEFT VIA AMBULANCE GOING TO [facility], WITH ALL PERSONAL BELONGINGS IN SATISFACTORY CONDITION
== END 2020-07-17 20:27 | DRG 470 ==
LOC: DS 05:25 → MED 05:27
PROVIDERS: ADMIT Internal Medicine; ATTEND Internal Medicine
PROC: 0SRB0JZ Replacement of Left Hip Joint with Synthetic Substitute, Open Approach (ICD-10-PCS; principal; 2020-07-15)
DX: M16.12 Unilateral primary osteoarthritis, left hip (principal); E03.9 Hypothyroidism, unspecified; K21.9 Gastro-esophageal reflux disease without esophagitis; I10 Essential (primary) hypertension; E78.5 Hyperlipidemia, unspecified; H40.9 Unspecified glaucoma; M20.42 Other hammer toe(s) (acquired), left foot; M20.41 Other hammer toe(s) (acquired), right foot; Z86.73 Personal history of transient ischemic attack (TIA), and cerebral infarction without residual deficits; Z87.891 Personal history of nicotine dependence; G47.00 Insomnia, unspecified; S81.812A Laceration without foreign body, left lower leg, initial encounter; X58.XXXA Exposure to other specified factors, initial encounter; Y93.9 Activity, unspecified; Y92.009 Unspecified place in unspecified non-institutional (private) residence as the place of occurrence of the external cause
CPT/HCPCS: 36415; 85027-TC; 87081-TC; 97530-TC; A4217; A6209; C1776; G0378; J0690; J1100; J1170; J1885; J2405; J2704; J3010; J3490; J7060; J7120; Q0163

== ENCOUNTER 2020-12-04 15:48 | Outpatient (CLI) | payer MEDICARE, OTHER ==
[~2020-12-04 15:48] MED LIST changes: -ASPI-1169 PO; +ASPI-992 PO; -IBUP-1953 PO; -KETO10TA2 PO; +OXYC5CAP18 PO
== END 2020-12-04 23:59 | disposition home or self-care (01) ==
LOC: LAB 15:48
PROVIDERS: ATTEND Specialist
DX: Z01.812 Encounter for preprocedural laboratory examination (principal); Z20.822 Contact with and (suspected) exposure to COVID-19
CPT/HCPCS: 87426; C9803 ×2; U0003

== ENCOUNTER → 2020-12-31 | Outpatient (CLI) | payer MEDICARE, OTHER ==
[~2020-12-31] MED LIST changes: +ATOR10TA PO; +DULO30CA52 PO; +GABA400C PO; +LEVO25TA9 PO; +VALS80TA31 PO
== END | disposition home or self-care (01) ==
LOC: LAB 15:00
PROVIDERS: ATTEND Specialist
DX: Z01.812 Encounter for preprocedural laboratory examination (principal); Z20.822 Contact with and (suspected) exposure to COVID-19
CPT/HCPCS: C9803; U0003

== ENCOUNTER 2021-01-06 05:57 | Inpatient (IN) | payer MEDICARE, OTHER ==
[~2021-01-06] VITALS: Ht 162.6 cm; Wt 72.6 kg
[~2021-01-06 05:57] MED LIST changes: +ANESTHESIA TRAY IN PYXIS 1 EA TRAY MC ONE; -ATOR10TA PO; -DULO30CA52 PO; -GABA400C PO; -LEVO25TA9 PO; -VALS80TA31 PO
[2021-01-06] MEDS ORDERED: BACITRACIN 50000 UNITS/VIAL ONE (06:40)
[2021-01-06] MEDS ORDERED: ANESTHESIA TRAY IN PYXIS 1 EA TRAY MC ONE (06:40)
[2021-01-06] MEDS ORDERED: BUPIVACAINE 0.5 % PF 150 MG/30 ML VIAL ONE ×2 (06:40→06:41)
[2021-01-06] MEDS ORDERED: BUPIVACAINE 0.25% 75 MG/30 ML VIAL ONE (06:41)
--- NOTE | 2021-01-06 07:15 | NUR ---
MS/beater room supervisor Patient off floor at start of shift, in operating room.
[2021-01-06] MEDS ORDERED: TRANEXAMIC ACID 3,000 MG in SODIUM CHLORIDE IRRIG SOLUTION 70 ML IR ONE (07:30)
[2021-01-06] MEDS ORDERED: DULO30CA52 PO (07:52)
[2021-01-06] MEDS ORDERED: GABA400C PO (07:52)
[2021-01-06] MEDS ORDERED: VALS80TA31 PO (07:52)
[2021-01-06] MEDS ORDERED: ATOR10TA PO (07:52)
[2021-01-06] MEDS ORDERED: LEVO25TA9 PO (07:52)
[2021-01-06] MEDS ORDERED: FENTANYL PF 100MCG/2ML AMPUL ONE ×2 (08:04→10:09)
[2021-01-06] MEDS ORDERED: CLINDAMYCIN 900 MG/6 ML VIAL ONE (08:40)
[2021-01-06] MEDS ORDERED: VANCOMYCIN 1 GM VIAL ONE (09:09)
[2021-01-06] MEDS ORDERED: diphenhydrAMINE HCL 25 MG CAPSULE PO PRN (11:00)
[2021-01-06] MEDS ORDERED: MAGNESIUM HYDROXIDE 30 ML UDC PO PRN (11:00)
[2021-01-06] MEDS ORDERED: ONDANSETRON HCL/PF 4 MG/2 ML VIAL IV PRN (11:00)
--- NOTE | 2021-01-06 11:05 | NUR ---
MS RN ADMITTING NOTE: RECEIVED PATIENT FROM OR - POST OP RIGHT TOTAL KNEE ARTHROPLASTY. DRESSING INTACT. PATIENT IS COMPLAINING OF PAIN VERY FREQUENTLY. VITALS ARE STABLE, PATIENT NOTED 9/10 PAIN AT SURGERY SITE. BREATHING IS NON-LABORED. SKIN INTACT. LAMBERT CATHETER DRAINING. NC @ 2LPM. WILL CONTINUE TO MONITOR.
[2021-01-06] MEDS ORDERED: DULCOLAX 10 MG/SUPP.RECT RC PRN (11:30)
[2021-01-06] MEDS ORDERED: COLACE 250 MG CAPSULE PO PRN (11:30)
[2021-01-06] MEDS ORDERED: TYLENOL 650 MG TABLET PO PRN (11:30)
[2021-01-06] MEDS ORDERED: HYDROMORPHONE 1 MG/1 ML DISP.SYRIN IV ONE (11:30)
[2021-01-06] MEDS ORDERED: ZOFRAN 4mg/2ML IV PRN (11:30)
[2021-01-06] MEDS: IV LR 1000 ML 1,000 ML IV PRN (11:55)
[2021-01-06] MEDS: LEVOTHYROXINE SODIUM 25 MCG TABLET PO SCH (12:22)
[2021-01-06] MEDS: DULOXETINE HCL 30 MG CAPSULE.DR PO SCH (12:22)
[2021-01-06] MEDS ORDERED: LEVOFLOXACIN 500 MG /D5W 100ML 500 MG in PREMIX 1 EA IV ONE (13:00)
[2021-01-06] MEDS: oxyCODONE IR immediate release 5 MG PO PRN ×2 (14:48→20:17)
[2021-01-06] MEDS: CLINDAMYCIN 600 MG in IV D5W 50 ML IV SCH ×2 (15:06→22:56)
[2021-01-06] MEDS: DOCUSATE SODIUM 100 MG CAPSULE PO SCH (16:44)
[2021-01-06 17:48] VITALS: BP 146/83
[2021-01-06] MEDS ORDERED: ASPI-992 PO (18:01)
--- NOTE | 2021-01-06 18:36 | NUR ---
MS RN CLOSING NOTE: PATIENT CURRENTLY LYING IN BED, AWAKE. A/O X3 BUT FORGETFUL. POST OP RIGHT TOTAL KNEE ARTHROPLASTY. DRESSING INTACT. PATIENT IS COMPLAINING OF PAIN VERY FREQUENTLY. LAST PAIN MED GIVEN @ 1448 - OXY IR 10MG. VITALS ARE STABLE, PATIENT CONTINUES TO COMPLAIN OF 8/10 PAIN AT SURGERY SITE. BREATHING IS NON-LABORED. SKIN INTACT. LAMBERT CATHETER DRAINING. NC @ 2LPM. WILL ENDORSE TO ETL DATABASE DEVELOPER NURSE.
--- NOTE | 2021-01-06 19:45 | NUR ---
MS RN NOTES RECEIVED ON BED ON SEMI FOWLERS POSITION,O2 IN USED AT 2L/NC TO KEEP O2 SAT ABOVE 90%.S/P RIGHT TKA,DRESSING INTACT AND DRY,WITH RIGHT KNEE IMMOBILIZER IN PLACE,IVF LR AT 100ML/HR RATE INFUSING WELL ON RIGHT HAND,SITE PATENT.DVT PUMP IN USED ON LEFT LOWER LEG,CALL LIGHT IN REACH,NEEDS ANTICIPATED.
[2021-01-06 20:00] VITALS: BP 115/76
[2021-01-06] MEDS: FAMOTIDINE (20 MG) 20 MG TABLET PO SCH (20:16)
--- NOTE | 2021-01-06 20:17 | NUR ---
MS RN NOTES PAIN MANAGEMENT C/O RIGHT KNEE PAIN 5/10 ON PAIN SCALE,OXY IR 10MG PO GIVEN ORDERED FOR MODERATE PAIN.
[2021-01-06] MEDS ORDERED: AMBIEN 5 MG TABLET PO PRN (21:00)
[2021-01-06] MEDS: VALSARTAN 40 MG TABLET PO SCH (21:19)
[2021-01-06] MEDS: LATANOPROST EYE DROP 0.005% 2.5 ML BOTTLE EACHEYE SCH (21:20)
[2021-01-06] MEDS: GABAPENTIN 300 MG CAPSULE PO SCH (21:22)
[2021-01-06] MEDS: ATORVASTATIN 10 MG TABLET PO SCH (21:22)
[2021-01-06] MEDS ORDERED: ATORVASTATIN 10 MG TABLET PO SCH (22:00)
[2021-01-06] MEDS ORDERED: LEVOTHYROXINE SODIUM 88 MCG TABLET PO SCH (22:00)
[2021-01-06] MEDS ORDERED: SENOKOT 8.6 MG TABLET PO PRN (22:00)
[2021-01-06] MEDS: ZOLPIDEM TARTRATE 10 MG TABLET PO PRN (22:09)
--- NOTE | 2021-01-06 22:09 | NUR ---
MS RN NOTES PATIENT SAY "I NEED SOMETHING FOR SLEEP"MEDICATED WITH AMBIEN 5MG PO ORDERED. REPOSITIONED.
[2021-01-07] MEDS: HYDROMORPHONE 1 MG/1 ML DISP.SYRIN IM/IV/SC PRN ×2 (00:06→16:55)
--- NOTE | 2021-01-07 00:06 | NUR ---
MS RN NOTES AWAKE,CLAIMED STILL IN PAIN ON HER RIGHT KNEE 9/10 ON PAIN SCALE,DILAUDID 0.5MG IV GIVEN ORDERED FOR SEVERE PAIN
[2021-01-07] MEDS: MAG HYDROX/AL HYDROX/SIMETH 30 ML UDC PO PRN ×3 (05:20→21:58)
--- NOTE | 2021-01-07 05:20 | NUR ---
MS RN NOTES AWAKE THIS TIME,C/O STOMACH UPSET.MAALOX 30ML PO GIVEN ORDERED
[2021-01-07] MEDS: oxyCODONE IR immediate release 5 MG PO PRN (06:00)
--- NOTE | 2021-01-07 06:00 | NUR ---
MS RN NOTES PAIN MANAGEMENT C/O MODERATE PAIN ON THE RIGHT KNEE,OXY IR 10MG PO GIVEN ORDERED.
--- NOTE | 2021-01-07 06:00 | NUR ---
MS RN NOTES LAMBERT CATHETER DISCONTINUED ORDERED,WITH 1450ML URINE OUTPUT.
[2021-01-07] MEDS: CLINDAMYCIN 600 MG in IV D5W 50 ML IV SCH (06:38)
[2021-01-07 07:00] LABS: HEMOGLOBIN 13.9 g/dL (11.5-14.8)
--- NOTE | 2021-01-07 07:00 | NUR ---
MS RN NOTES CALM AND QUIET ON BED, VERY FORGETFUL,PAIN MANAGEMENT EFFECTIVE.STOMACH UPSET IMPROVED.LAMBERT CATH DISCONTINUE ORDERED.IN NO ACUTE DISTRESS.ENDORSED TO FRANK IBANEZ FOR DEBBIE.
--- NOTE | 2021-01-07 07:31 | NUR ---
MS RN OPENING NOTES RECEIVED PT AWAKE IN BED IN NO ACUTE SIGNS OF DISTRESS. A/O X2-3. ABLE TO MAKE NEEDS KNOWN. VERBALIZED THAT PAIN ON HER RIGHT KNEE IS TOLERABLE AT THIS TIME. ON O2 VIA N/C @ 2LPM, TOLERATING WELL WITH NO SOB NOTED. DRESSING ON RIGHT KNEE INTACT AND DRY WITH RIGHT KNEE IMMOBILIZER IN PLACE. IV ACCESS ON RIGHT HAND G#24 INTACT AND PATENT WITH IVF OF LR AT 100ML/HR RATE INFUSING WELL. SAFETY MEASURES IN PLACE: BED IN LOWEST LOCKED POSITION WITH SR UP X2. CALL LIGHT IN REACH. WILL CONTINUE TO MONITOR PT.
[2021-01-07] MEDS: LEVOTHYROXINE SODIUM 25 MCG TABLET PO SCH (07:56)
[2021-01-07 08:00] VITALS: BP 145/77
[2021-01-07] MEDS: VALSARTAN 40 MG TABLET PO SCH ×2 (08:59→21:38)
[2021-01-07] MEDS: FAMOTIDINE (20 MG) 20 MG TABLET PO SCH ×2 (08:59→21:36)
[2021-01-07] MEDS: ASPIRIN EC 325 MG TABLET.DR PO SCH (09:00)
[2021-01-07] MEDS ORDERED: ASPIRIN 325 MG TABLET PO SCH ×2 (09:00)
[2021-01-07] MEDS ORDERED: LEVOTHYROXINE SODIUM 25 MCG TABLET PO SCH (09:00)
[2021-01-07] MEDS ORDERED: BIMATOPROST 2.5 ML DROPS OP SCH (09:00)
[2021-01-07] MEDS ORDERED: VALSARTAN 80 MG TABLET PO SCH (09:00)
[2021-01-07] MEDS ORDERED: GABAPENTIN 400 MG CAPSULE PO SCH (09:00)
[2021-01-07] MEDS ORDERED: ASPIRIN EC 325 MG TABLET.DR PO SCH (09:00)
[2021-01-07] MEDS: DOCUSATE SODIUM 100 MG CAPSULE PO SCH ×2 (09:00→16:06)
[2021-01-07] MEDS ORDERED: DULOXETINE HCL 30 MG CAPSULE.DR PO SCH (09:00)
[2021-01-07] MEDS: DULOXETINE HCL 30 MG CAPSULE.DR PO SCH (09:02)
--- NOTE | 2021-01-07 14:47 | NUR ---
RN NOTES PHYSICAL THERAPY X 2 TODAY AND PT APPLIED CPM MACHINES ON R LOWER EXTREMITY. WILL CONTINUE TO MONITOR PT.
[2021-01-07 16:00] VITALS: BP 140/70
[2021-01-07] MEDS: IV LR 1000 ML 1,000 ML IV PRN ×2 (16:42)
--- NOTE | 2021-01-07 16:59 | NUR ---
RN NOTES/PAIN MANAGEMENT PT C/O ACHING AND THROBBING PAIN OR RIGHT KNEE WITH SCALE OF 8/10. PRN DILAUDID 0.5MG/0.5ML IVP ADMINISTERED AT 1655. WILL CONTINUE TO MONITOR AND REASSESS PT.
--- NOTE | 2021-01-07 18:42 | NUR ---
MS RN CLOSING NOTES PT WAS SEEN SLEEPING IN BED IN NO ACUTE SIGNS OF DISTRESS. A/O X2-3. ABLE TO MAKE NEEDS KNOWN. VERBALIZED THAT PAIN ON HER RIGHT KNEE IS TOLERABLE AT THIS TIME. ON O2 VIA N/C @ 2LPM, TOLERATING WELL WITH NO SOB NOTED. DRESSING ON RIGHT KNEE INTACT AND DRY. IV ACCESS ON RIGHT HAND G#24 INTACT AND PATENT WITH IVF OF LR AT 100ML/HR RATE INFUSING WELL. SAFETY MEASURES IN PLACE: BED IN LOWEST LOCKED POSITION WITH SR UP X2. CALL LIGHT IN REACH. WILL ENDORSE TO DIVINITY TEACHER NURSE.
[2021-01-07 20:00] VITALS: BP 130/80
--- NOTE | 2021-01-07 20:25 | NUR ---
RN NOTES PT WAS SEEN SLEEPING IN BED IN NO ACUTE SIGNS OF DISTRESS. A/O X2-3. ABLE TO MAKE NEEDS KNOWN. VERBALIZED THAT PAIN ON HER RIGHT KNEE IS TOLERABLE AT THIS TIME. ON O2 VIA N/C @ 2LPM, TOLERATING WELL WITH NO SOB NOTED. DRESSING ON RIGHT KNEE INTACT AND DRY. IV ACCESS ON RIGHT HAND G#24 INTACT AND PATENT WITH IVF OF LR AT 100ML/HR RATE INFUSING WELL. SAFETY MEASURES IN PLACE: BED IN LOWEST LOCKED POSITION WITH SR UP X2. CALL LIGHT IN REACH. WILL CONTINUE TO MONITOR.
[2021-01-07] MEDS: ATORVASTATIN 10 MG TABLET PO SCH (21:36)
[2021-01-07] MEDS: GABAPENTIN 300 MG CAPSULE PO SCH (21:36)
[2021-01-07] MEDS: ZOLPIDEM TARTRATE 10 MG TABLET PO PRN (21:59)
[2021-01-07] MEDS: LATANOPROST EYE DROP 0.005% 2.5 ML BOTTLE EACHEYE SCH (22:16)
[2021-01-08] MEDS: IV LR 1000 ML 1,000 ML IV PRN (02:04)
[2021-01-08] MEDS ORDERED: DULOXETINE HCL 30 MG CAPSULE.DR PO SCH ×2 (06:00)
[2021-01-08] MEDS: LEVOTHYROXINE SODIUM 25 MCG TABLET PO SCH (06:40)
--- NOTE | 2021-01-08 06:55 | NUR ---
RN NOTES PT WAS SEEN SLEEPING IN BED IN NO ACUTE SIGNS OF DISTRESS. A/O X2-3. ABLE TO MAKE NEEDS KNOWN. NO PAIN OR DISCOMFORT NOTED OR REPORTED AT THIS TIME.ON O2 VIA N/C @ 2LPM, TOLERATING WELL WITH NO SOB NOTED. DRESSING ON RIGHT KNEE INTACT AND DRY. IV ACCESS ON RIGHT HAND G#24 INTACT AND PATENT SALINE LOCKED.SAFETY MEASURES IN PLACE: BED IN LOWEST LOCKED POSITION WITH SR UP X2. CALL LIGHT IN REACH. WILL ENDORSE CARE TO DAY SHIFT NURSE.
--- NOTE | 2021-01-08 07:51 | NUR ---
MS RN OPENING NOTES RECEIVED PT AWAKE IN BED IN NO ACUTE SIGNS OF DISTRESS. A/O X2-3. ABLE TO MAKE NEEDS KNOWN. 02 VIA NC AT 2LPM TOLERATING WELL. BREATHING EVEN AND UNLABORED. DRESSING ON RIGHT KNEE C/D/I. IV ACCESS ON RIGHT HAND GUAGE #24. PATIENT HAS A SALINE LOCK. SAFETY MEASURES IN PLACE. BED IN LOWEST LOCKED POSITION WITH SR UP X4. CALL LIGHT IN REACH. WILL CONTINUE TO MONITOR PT.
[2021-01-08 08:00] VITALS: BP 150/79
[2021-01-08 09:54] VITALS: BP 150/79
[2021-01-08] MEDS: VALSARTAN 40 MG TABLET PO SCH (09:54)
[2021-01-08] MEDS: FAMOTIDINE (20 MG) 20 MG TABLET PO SCH (09:54)
[2021-01-08] MEDS: ASPIRIN EC 325 MG TABLET.DR PO SCH (09:54)
[2021-01-08] MEDS: DOCUSATE SODIUM 100 MG CAPSULE PO SCH (09:54)
--- NOTE | 2021-01-08 11:56 | NUR ---
RN NOTES LILLIANA COLLISN CAME AND CHANGED PT'S RIGHT KNEE DRESSING. PHOTO WAS TAKEN AND FILED IN PT'S CHART.
--- NOTE | 2021-01-08 16:26 | NUR ---
RN DISCHARGED NOTES PT DISCHARGED TO [facility] UNIT RM 323. CALLED AND GAVE REPORT/DISCHARGED INSTRUCTIONS EARLIER TO MARCELLE MORRIS. PT IS A/O X3-4. ABLE TO MAKE NEEDS KNOWN. V/S TAKEN RECORDED AND STABLE. ALL BELONGINGS ACCOUNTED FOR AND SIGNED FORM. PHOTO OF RIGHT KNEE SURGICAL SITE TAKEN THIS MORNING. IV ACCESS REMOVED AND DRY PRESSURE DRESSING APPLIED TO SITE. CALLED AND LEFT MESSAGE TO PT'S JUDE THAT PT WILL BE TRANSFERRED TO [facility]. HEALTH TEACHINGS GIVEN TO PT AND VERBALIZED UNDERSTANDING. PT LEFT UNIT @ 1610 VIA [facility] ACCOMPANIED BY 2 EMT'S FROM [facility]. CHARGE NURSE AWARE OF DISCHARGE.
== END 2021-01-08 16:10 | DRG 470 ==
LOC: DS 05:57 → MED 05:58
PROVIDERS: ADMIT Internal Medicine; ATTEND Internal Medicine
PROC: 0SRC0J9 Replacement of Right Knee Joint with Synthetic Substitute, Cemented, Open Approach (ICD-10-PCS; principal; 2021-01-06)
DX: M17.11 Unilateral primary osteoarthritis, right knee (principal); I10 Essential (primary) hypertension; E03.9 Hypothyroidism, unspecified; E78.5 Hyperlipidemia, unspecified; Z88.0 Allergy status to penicillin; K21.9 Gastro-esophageal reflux disease without esophagitis; Z86.73 Personal history of transient ischemic attack (TIA), and cerebral infarction without residual deficits
CPT/HCPCS: 36415; 85027-TC; 86850-TC; 87081-TC; 88305-TC; 88311-TC; 97110-TC; 97112-TC; 97116-TC; 97530-TC; 97760-TC; A4216; A4217; C1713; C1776; G0378; J0330; J0360; J1100; J1170; J1956; J2405; J2704; J3010; J3370; J3490; J7060; J7120; L1830